=== PATIENT | male | born 1995 | race Caucasian/White ===

== ENCOUNTER 2017-11-17 18:30 | Emergency (ER) | payer BC, OTHER ==
--- NOTE | 2017-11-17 19:00 | UC ---
Head Injury HPI - HPI Summary HPI Summary: 22 yo male presents with laceration. He tells me that about 30min [employer] he was in wrestling practice at [employer] when a teammate's elbow collided with pt's head. He sustained a laceration above his right eye. Pt did not have LOC. He says that he is UTD with his tetanus. Denies headache, dizziness, or vision changes. - History Of Current Complaint Stated Complaint: HEAD LAC Time Seen by Provider: 11/17/17 19:00 Hx Obtained From: Patient Onset/Duration: Sudden Onset Severity Currently: Moderate Severity Initially: Moderate Pain Intensity: 6 Pain Scale Used: 0-10 Numeric Character: Dull - Allergies/Home Medications Allergies/Adverse Reactions: Allergies Allergy/AdvReac Type Severity Reaction Status Date / Time No Known Allergies Allergy Verified 11/17/17 19:03 Home Medications: Home Medications NK [No Home Medications Reported] 11/17/17 [History Confirmed 11/17/17] PMH/Surg Hx/FS Hx/Imm Hx - Additional Past Medical History Additional PMH: None - Surgical History Surgical History: None - Family History Known Family History: Positive: None - Social History Occupation: Student Lives: Dormitory/Roommates Alcohol Use: Occasionally Substance Use Type: None Smoking Status (MU): Never Smoked Tobacco Review of Systems Constitutional: Negative Skin: Other - Laceration above right eye Eyes: Negative Respiratory: Negative Cardiovascular: Negative Neurovascular: Negative Musculoskeletal: Negative Neurological: Negative Psychological: Negative All Other Systems Reviewed And Are Negative: Yes Physical Exam - Summary Physical Exam Summary: GENERAL: NAD. WDWN. No pain distress. SKIN: Above right eyebrow there is a 1.5cm linear laceration with exposed subcutaneous tissue. Mild active bleeding. NECK: Supple. FROM. NTTP. CHEST: No accessory muscle use. Breathing comfortably and in no distress. CV: Pulses intact. Cap refill <2seconds NEURO: Alert. CN II-XII grossly intact. PSYCH: Age appropriate behavior. Triage Information Reviewed: Yes Vital Signs: Vital Signs: Temp Pulse Resp BP Pulse Ox 97.9 F 67 16 119/70 97 11/17/17 18:56 11/17/17 18:56 11/17/17 18:56 11/17/17 18:56 11/17/17 18:56 Vital Signs Reviewed: Yes Head Injury Course/Dx - Course Course Of Treatment: A time out was performed, witnessed, and signed. The area was irrigated with 250mL sterile saline. 2mL of 2% lidocaine without epi was administered and good anesthetization was achieved. In the usual sterile fashion , SIX 6-0 prolene interrupted sutures were placed. Pt tolerated procedure well. - Differential Dx/Diagnosis Provider Diagnoses: Laceration right eyebrow Discharge - Sign-Out/Discharge Documenting (check all that apply): Patient Departure All imaging exams completed and their final reports reviewed: No Studies - Discharge Plan Condition: Stable Disposition: HOME Patient Education Materials: Care For Your Stitches (DC), Laceration (ED) Referrals: [facility] [Primary Care Provider] - Additional Instructions: If you develop a fever, shortness of breath, chest pain, new or worsening symptoms - please call your PCP or go to the ED. 1) Please keep the area bandaged, clean, and intact for the next 24-48hours. 2) If you develop a fever, colored or thick discharge, increased pain or swelling - please call your PCP or go to the ED. 3) Please return in 5 days to have your SIX sutures removed. - Billing Disposition and Condition Condition: STABLE Disposition: Home - Attestation Statements Provider Attestation: Per institutional requirements, I have reviewed the chart, however, I was not consulted specifically or made aware of this patient by the midlevel provider. I did not personally evaluate, interact with , or disposition this patient. Laceration - History Of Current Complaint Time Seen by Provider: 11/17/17 19:00 - Allergies/Home Medications Allergies/Adverse Reactions: Allergies Allergy/AdvReac Type Severity Reaction Status Date / Time No Known Allergies Allergy Verified 11/17/17 19:03 Home Medications: Home Medications NK [No Home Medications Reported] 11/17/17 [History Confirmed 11/17/17] Laceration Repair - Laceration Repair 1 Description: Linear Laceration Size After Repair: Length (cm) - 1.0 Modified For Repair: No Type Injection: Local Anesthesia Used: 2.0% Lido Irrigation With Pressure Irrigation Device: Yes Closure Material: Sutures - SIX 6-0 Closure Method: Single Layer Suture Of: Skin Suture Type: Prolene
[2017-11-17 19:04] VITALS: BP 119/70
[2017-11-17] MEDS ORDERED: Lidocaine 2% PF * 5 ML VIAL INJ ONE (19:10)
== END 2017-11-17 19:45 | disposition home or self-care (01) ==
LOC: UCEAST 18:30
DX: S01.111A Laceration without foreign body of right eyelid and periocular area, initial encounter (principal); W50.0XXA Accidental hit or strike by another person, initial encounter; Y93.72 Activity, wrestling; Y92.9 Unspecified place or not applicable
CPT/HCPCS: 12002; 99201; G0463

== ENCOUNTER → 2017-11-26 17:34 | Emergency (ER) | payer BC, OTHER ==
[~2017-11-26 17:34] MED LIST: Ibuprofen TAB* 800 MG PO ONE; Metoclopramide TAB* 10 MG PO ONE
--- NOTE | 2017-11-26 19:14 | RAD ---
EXAM: CT Head Without Intravenous Contrast CLINICAL HISTORY: 22 years old, male; Pain and injury or trauma; Fall; Late effect from previous injury; Concussion / head injury; With loss of consciousness; Not specified; Headache; Headache not specified; Injury date: 11/24/17; Additional info: Traumatic headache TECHNIQUE: Axial computed tomography images of the head/brain without intravenous contrast. All CT scans at this facility use at least one of these dose optimization techniques: automated exposure control; mA and/or kV adjustment per patient size (includes targeted exams where dose is matched to clinical indication); or iterative reconstruction. COMPARISON: No relevant prior studies available. FINDINGS: Brain: No intracranial hemorrhage or extra-axial fluid collection. No evidence of mass effect or midline shift. Morris-white matter differentiation is normal. Ventricles: Unremarkable. No ventriculomegaly. Bones/joints: Unremarkable. No acute fracture. Soft tissues: Unremarkable. Sinuses: Unremarkable as visualized. No acute sinusitis. Mastoid air cells: Unremarkable as visualized. No mastoid effusion. IMPRESSION: No acute intracranial pathology.
--- NOTE | 2017-11-26 19:16 | ED ---
Head Injury - HPI Summary HPI Summary: This pt is a 22 y/o male [facility]/o right sided headache and nausea since yesterday. Pt reports he sustained a concussion on 11/17/17 after he took an elbow to the right side of his head during wrestling practice. He states that yesterday he felt pressure headache on the right side of his head. Today he woke up and his pain persisted. Pt currently rates his headache 5/10 in severity. Denies vomiting, fever, visual changes, difficulty ambulating, weakness, numbness, tingling. He went to the [facility] and was sent to the ED for a brain CT as they don't have CT at [place]. Pt has taken Tylenol for the pain, last dose was at 17:30 today with mild relief. - History Of Current Complaint Chief Complaint: EDHeadInjury Stated Complaint: PRESSURE HEADACHE/RT SIDE Time Seen by Provider: 11/26/17 19:04 Hx Obtained From: Patient Mechanism Of Injury: Blunt Trauma Onset/Duration: Started Days Ago - 1, Traumatic, Still Present Onset of Pain: Days - 1 Severity Initially: Moderate Pain Intensity: 5 Pain Scale Used: 0-10 Numeric Location of Head Injury: Temporal - right Location: Discrete At: - right side of head Character: Pressure Associated Signs And Symptoms: Nausea, Headache, Other: - NEG: vomiting, fever, confusion, visual changes, weakness, numbness, tingling. - Allergies/Home Medications Allergies/Adverse Reactions: Allergies Allergy/AdvReac Type Severity Reaction Status Date / Time No Known Allergies Allergy Verified 11/26/17 18:59 PMH/Surg Hx/FS Hx/Imm Hx Endocrine/Hematology History: Denies: Hx Diabetes Cardiovascular History: Denies: Hx Hypertension - Immunization History Immunizations Up to Date: Yes Infectious Disease History: No Infectious Disease History: Denies: Traveled Outside the [place] in Last 30 Days - Family History Known Family History: Negative: Cardiac Disease, Hypertension, Diabetes - Social History Alcohol Use: Occasionally Substance Use Type: Reports: None Smoking Status (MU): Never Smoked Tobacco Review of Systems Negative: Fever, Chills Eyes: Negative Negative: Blurred Vision, Diplopia Negative: Chest Pain Negative: Shortness Of Breath Positive: Nausea. Negative: Vomiting Positive: Headache. Negative: Weakness, Paresthesia, Numbness, Slurred Speech All Other Systems Reviewed And Are Negative: Yes Physical Exam - Summary Physical Exam Summary: VITAL SIGNS: Reviewed. GENERAL: Patient is a well-developed and nourished male who is lying comfortable in the stretcher. Patient is not in any acute respiratory distress. HEAD AND FACE: No signs of trauma. No ecchymosis, hematomas or skull depressions. No sinus tenderness. EYES: PERRLA, EOMI x 2, No injected conjunctiva, no nystagmus. EARS: Hearing grossly intact. Ear canals and tympanic membranes are within normal limits. MOUTH: Oropharynx within normal limits. NECK: Supple, trachea is midline, no adenopathy, no JVD, no carotid bruit, no c- spine tenderness, neck with full ROM. CHEST: Symmetric, no tenderness at palpation LUNGS: Clear to auscultation bilaterally. No wheezing or crackles. CVS: Regular rate and rhythm, S1 and S2 present, no murmurs or gallops appreciated. ABDOMEN: Soft, non-tender. No signs of distention. No rebound no guarding, and no masses palpated. Bowel sounds are normal. EXTREMITIES: FROM in all major joints, no edema, no cyanosis or clubbing. NEURO: Alert and oriented x 3. No acute neurological deficits. Speech is normal and follows commands. SKIN: Dry and warm GCS: 15 Triage Information Reviewed: Yes Vital Signs On Initial Exam: Initial Vitals Temp Pulse Resp BP Pulse Ox 97.6 F 50 16 132/85 100 11/26/17 17:51 11/26/17 17:51 11/26/17 17:51 11/26/17 17:51 11/26/17 17:51 Vital Signs Reviewed: Yes Diagnostics - Vital Signs Vital Signs Temp Pulse Resp BP Pulse Ox 11/26/17 17:51 97.6 F 50 16 132/85 100 - Laboratory Lab Statement: Any lab studies that have been ordered have been reviewed, and results considered in the medical decision making process. - CT Brain CT CT Interpretation: No Acute Changes - IMPRESSION: No acute intracranial pathology. Dr. Welch has reviewed this radiology report. CT Interpretation Completed By: Radiologist Head Injury Course/Dx Assessment/Plan: Pt is a 22 y/o male presenting to the ED c/o right sided headache and nausea since yesterday. Pt reports he sustained a concussion on after he took an elbow to the right side of his head during wrestling practice. He states that yesterday he felt pressure headache on the right side of his head. Today he woke up and his pain persisted. Pt currently rates his headache 5/10 in severity. Denies vomiting, fever, visual changes, difficulty ambulating, weakness, numbness, tingling. On exam pt has no neurological deficits. Brain CT shows no acute intracranial pathology. In the ED course pt was given Reglan and Motrin. Pt will be discharged home with follow up from his PCP im 1-2 days. He was given a prescription for Motrin and Reglan. - Diagnoses Provider Diagnoses: Concussion Discharge - Sign-Out/Discharge Documenting (check all that apply): Patient Departure - Discharge - Discharge Plan Condition: Stable Disposition: HOME Prescriptions: Ibuprofen TAB* [Motrin TAB* 800 MG] 800 mg PO Q6H PRN #30 tab PRN Reason: Pain Metoclopramide TAB* [Reglan TAB*] 10 mg PO Q6H PRN #20 tab PRN Reason: Nausea/Vomiting Patient Education Materials: Concussion (ED) Referrals: [facility] [Primary Care Provider] - 1 Day (in 1-2 days) Additional Instructions: Please follow up with your primary care provider in 1-2 days. RETURN TO EMERGENCY DEPARTMENT FOR ANY NEW OR WORSENING SYMPTOMS. - Attestation Statements Document Initiated by Scribe: Yes Documenting Scribe: Tabitha Bess Provider For Whom Scribe is Documenting (Include Credential): Dr. Kayli Welch MD Scribe Attestation: Tabitha Gregory scribed for Dr. Kayli Welch MD on 11/26/17 at 1922.
[2017-11-26 19:34] VITALS: BP 128/70
== END | disposition home or self-care (01) ==
LOC: ED 17:34
DX: S06.0X9A Concussion with loss of consciousness of unspecified duration, initial encounter (principal); W50.0XXA Accidental hit or strike by another person, initial encounter; Y93.72 Activity, wrestling; Y92.9 Unspecified place or not applicable
CPT/HCPCS: 70450; 99282; A9270-GY

== ENCOUNTER 2019-01-29 16:44 | Emergency (ER) | payer BC, OTHER ==
--- NOTE | 2019-01-29 17:33 | ED ---
Abdominal Pain/Male - HPI Summary HPI Summary: 24 yo male presents with abdominal pain. He tells me that since 01/23 he has had intermittent RUQ pain that is worse after eating. Since that time his pain has become more constant and he has associated nausea - no vomiting. Last night his pain was the worst it has been, again after eating dinner. He notes that his stools have been "floating" over the last 4-6 weeks. 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 - History of Current Complaint Chief Complaint: EDAbdPain Stated Complaint: RIGHT UPPER STOMACH PAIN WITH BAD NAUSEA PER PT Time Seen by Provider: 01/29/19 17:33 Hx Obtained From: Patient Timing: Constant Severity Initially: Moderate Severity Currently: Moderate Pain Intensity: 6 - Allergies/Home Medications Allergies/Adverse Reactions: Allergies Allergy/AdvReac Type Severity Reaction Status Date / Time No Known Allergies Allergy Verified 01/29/19 16:57 PMH/Surg Hx/FS Hx/Imm Hx Endocrine/Hematology History: Denies: Hx Diabetes Cardiovascular History: Denies: Hx Hypertension Respiratory History: Denies: Hx Asthma, Hx Chronic Obstructive Pulmonary Disease (COPD) GI History: Denies: Hx Diverticulosis, Hx Gall Bladder Disease, Hx Gastroesophageal Reflux Disease, Hx Ulcer - Surgical History Surgical History: None - Immunization History Immunizations Up to Date: Yes Infectious Disease History: No Infectious Disease History: Denies: Traveled Outside the [place] in Last 30 Days - Family History Known Family History: Positive: None Negative: Cardiac Disease, Hypertension, Diabetes - Social History Occupation: Student Lives: Dormitory/Roommates Alcohol Use: Occasionally Substance Use Type: Reports: None Smoking Status (MU): Never Smoked Tobacco Review of Systems Constitutional: Negative Eyes: Negative ENT: Negative Cardiovascular: Negative Respiratory: Negative Positive: Abdominal Pain, Nausea Genitourinary: Negative Skin: Negative Neurological: Negative Psychological: Normal All Other Systems Reviewed And Are Negative: No Physical Exam - Summary Physical Exam Summary: GENERAL: NAD. WDWN. No pain distress. SKIN: No rashes, sores, or open wounds. NECK: Supple. Nontender. No lymphadenopathy. CHEST: CTAB. No r/r/w. No accessory muscle use. Breathing comfortably and in no distress. CV: RRR. Pulses intact. Brisk cap refill. ABDOMEN: Soft. Mild TTP RUQ. No distention or guarding. No organomegaly. No CVA tenderness. Bowel sounds present. Negative washington sign. MSK: FROM and 5/5 strength throughout. No edema. NEURO: Alert. PSYCH: Age appropriate behavior. Triage Information Reviewed: Yes Vital Signs On Initial Exam: Initial Vitals Temp Pulse Resp BP Pulse Ox 97.5 F 44 16 137/85 97 01/29/19 16:54 01/29/19 16:54 01/29/19 16:54 01/29/19 16:54 01/29/19 16:54 Vital Signs Reviewed: Yes Procedures - Sedation Patient Received Moderate/Deep Sedation with Procedure: No Diagnostics - Vital Signs Vital Signs Temp Pulse Resp BP Pulse Ox 01/29/19 16:54 97.5 F 44 16 137/85 97 - Laboratory Lab Results: Laboratory Tests 01/29/19 01/29/19 01/29/19 17:40 17:44 17:44 WBC 7.4 RBC 5.37 Hgb 15.8 Hct 45 MCV 84 MCH 29 MCHC 35 RDW 14 Plt Count 190 MPV 9.0 Neut % (Auto) 54.5 Lymph % (Auto) 37.2 [place] % (Auto) 6.8 Eos % (Auto) 1.1 Baso % (Auto) 0.4 Absolute Neuts (auto) 4.0 Absolute Lymphs (auto) 2.7 Absolute Monos (auto) 0.5 Absolute Eos (auto) 0.1 Absolute Basos (auto) 0.0 Absolute Nucleated RBC 0.0 Nucleated RBC % 0.2 Sodium 140 Potassium 3.9 Chloride 105 Carbon Dioxide 30 Anion Gap 5 BUN 15 Creatinine 0.92 Est GFR ( Amer) 124.5 Est GFR (Non-Af Amer) 102.9 BUN/Creatinine Ratio 16.3 Glucose 93 Lactic Acid Calcium 9.7 Total Bilirubin 1.00 AST 19 ALT 15 Alkaline Phosphatase 62 C-Reactive Protein < 1.00 Total Protein 7.2 Albumin 4.9 Globulin 2.3 Albumin/Globulin Ratio 2.1 Lipase 23 Urine Color Straw Urine Appearance Clear Urine pH 6.0 Ur Specific [place] 1.006 L Urine Protein Negative Urine Ketones Negative Urine Blood Negative Urine Nitrate Negative Urine Bilirubin Negative Urine Urobilinogen Negative Ur Leukocyte Esterase Negative Urine Glucose Negative 01/29/19 17:44 WBC RBC Hgb Hct MCV MCH MCHC RDW Plt Count MPV Neut % (Auto) Lymph % (Auto) [place] % (Auto) Eos % (Auto) Baso % (Auto) Absolute Neuts (auto) Absolute Lymphs (auto) Absolute Monos (auto) Absolute Eos (auto) Absolute Basos (auto) Absolute Nucleated RBC Nucleated RBC % Sodium Potassium Chloride Carbon Dioxide Anion Gap BUN Creatinine Est GFR ( Amer) Est GFR (Non-Af Amer) BUN/Creatinine Ratio Glucose Lactic Acid 0.5 Calcium Total Bilirubin AST ALT Alkaline Phosphatase C-Reactive Protein Total Protein Albumin Globulin Albumin/Globulin Ratio Lipase Urine Color Urine Appearance Urine pH Ur Specific [place] Urine Protein Urine Ketones Urine Blood Urine Nitrate Urine Bilirubin Urine Urobilinogen Ur Leukocyte Esterase Urine Glucose Result Diagrams: 01/29/19 17:44 01/29/19 17:44 Lab Statement: Any lab studies that have been ordered have been reviewed, and results considered in the medical decision making process. - Ultrasound Gallbladder Ultrasound Interpretation Completed By: Radiologist Summary of Ultrasound Findings: IMPRESSION: No acute findings. No shadowing gallstones or gallbladder wall thickening. Re-Evaluation - Re-Evaluation First Eval Re-Evaluation Time: 19:28 Change: Improved Comment: Discussed u/s results. Pt asking for something to eat at this time - on nausea but still with discomfort - will try GI cocktail given continued discomfort. Second Eval Re-Evaluation Time: 20:15 Change: Improved Comment: Improved s/p GI cocktail. Abdominal Pain Male Course/Dx - Course Course Of Treatment: US as above. Labwork WNL. Symptoms improved with GI coctail. Suspect IBS vs GERD. Will try him with protonix and have him continue to f/u with [facility] for his GI symptoms. - Diagnoses Provider Diagnoses: Nausea, RUQ pain Discharge ED - Sign-Out/Discharge Documenting (check all that apply): Patient Departure - Discharge Plan Condition: Stable Disposition: HOME Prescriptions: Pantoprazole Sodium [Protonix] 20 mg PO BID #28 tablet. Patient Education Materials: Diet for Stomach Ulcers and Gastritis (ED), Gastroesophageal Reflux Disease (ED) Referrals: [facility] [Primary Care Provider] - 1 Week Additional Instructions: If you develop a fever, shortness of breath, chest pain, new or worsening symptoms - please call your PCP or go to the ED immediately. Your bloodwork and ultrasound were normal today. Your symptoms seem most consistent with acid reflux at this time. I recommend that you try the Protonix as prescribed and follow up with [facility] within 1 week for a recheck of your symptoms - Billing Disposition and Condition Condition: STABLE Disposition: Home - Attestation Statements Provider Attestation: I was available for consult. This patient was seen by the [facility]. The patient was not presented to, seen by, or examined by me. Ferny Layne MD
[2019-01-29 17:54] LABS: ABS Eosinophils 0.1 10^3/ul (0-0.6); ABS Lymphocytes 2.7 10^3/ul (1.0-4.8); ABS Monocytes 0.5 10^3/ul (0-0.8); Eosinophil % 1.1 %; Hematocrit 45 % (42-52); Hemoglobin 15.8 g/dL (14.0-18.0); Lymphocyte % 37.2 %; Mean Corpuscular HGB Conc 35 g/dL (31-36); Mean Corpuscular Hemoglobin 29 pg (27-31); Mean Corpuscular Volume 84 fL (80-94); Nucleated Red Blood Cells % 0.2; Platelet Count 190 10^3/uL (150-450); Red Blood Count 5.37 10^6 /uL (4.18-5.48); Red Cell Distribution Width 14 % (10-15); White Blood Count 7.4 10^3/uL (3.5-10.8)
[2019-01-29 18:03] LABS: Urine Appearance Clear; Urine Bilirubin Negative (Negative); Urine Blood Negative (Negative); Urine Color Straw; Urine Glucose Negative (Negative); Urine Ketones Negative (Negative); Urine Nitrite Negative (Negative); Urine Protein Negative (Negative); Urine Specific Gravity 1.006 (1.010-1.030); Urine Urobilinogen Negative (Negative)
[2019-01-29 18:11] LABS: ALT 15 U/L (7-52); AST 19 U/L (13-39); Albumin 4.9 g/dL (3.2-5.2); Albumin/Globulin Ratio 2.1 (1-3); Alkaline Phosphatase 62 U/L (34-104); Anion Gap 5 mmol/L (2-11); BUN/Creatinine Ratio 16.3 (8-20); Blood Urea Nitrogen 15 mg/dL (6-24); C Reactive Protein < 1.00 mg/L (<8.01); CO2 Carbon Dioxide 30 mmol/L (22-32); Calcium 9.7 mg/dL (8.6-10.3); Chloride 105 mmol/L (101-111); EGFR African American 124.5 (>60); EGFR Non-African American 102.9 (>60); Globulin 2.3 g/dL (2-4); Glucose 93 mg/dL (70-100); Potassium 3.9 mmol/L (3.5-5.0); Sodium 140 mmol/L (135-145); Total Protein 7.2 g/dL (6.4-8.9)
[2019-01-29] MEDS ORDERED: Al Hydrox/Mg Hydrox/Simet LIQ* 30 ML UDC PO ONE (19:21)
[2019-01-29] MEDS ORDERED: Famotidine TAB* 20 MG PO ONE (19:21)
[2019-01-29] MEDS ORDERED: Lidocaine 2% VISCOUS* 15 ML UDC PO ONE (19:21)
[2019-01-29 20:37] VITALS: BP 108/65
== END 2019-01-29 20:30 | disposition home or self-care (01) ==
LOC: ED 16:44
DX: R10.11 Right upper quadrant pain (principal); R11.0 Nausea
CPT/HCPCS: 36415; 76705; 80053; 81003; 83605; 83690; 85025; 86140; 99284; A9270-GY